=== PATIENT | female | born 1975 | race Hispanic/Latino ===

== ENCOUNTER 2024-10-07 15:20 | Emergency (ER) | payer SELFPAY ==
[2024-10-07 16:38] LABS: Absolute Basophils 0.1 K/uL (0-0.5); Absolute Eosinophils 0.1 K/uL (0-0.5); Absolute Lymphocytes (CBC) 2.1 K/uL (0.7-4.9); Absolute Monocytes 0.8 K/uL (0.1-1.3); Absolute Neutrophil 5.7 K/uL (1.8-8.0); Basophils % 0.7 % (0-1.3); Eosinophils % 1.2 % (0-4.4); Hematocrit 32.2 % (36.0-45.0); Hemoglobin 10.2 g/dL (12.0-15.0); Lymphocytes % 23.9 % (15.3-44.8); MCH 22.6 pg (27.0-35.0); MCHC 31.7 g/dL (32.0-36.0); MCV 71.2 fL (80-100); MPV 7.9 fL (7.6-11.3); Monocytes % 9.1 % (3.3-12.3); Neutrophils % 65.1 % (41.7-73.7); Nucleated Red Blood Cells % 0.1 % (0-0); Platelets 349 thou/uL (152-406); RBC Red Blood Cell Count 4.52 M/uL (3.86-4.86); Red Cell Distribution Width 20.2 % (12.1-15.2)
[2024-10-07 16:47] LABS: Anion Gap 8.3 mEq/L (5.0-15.0); Potassium 3.3 mEq/L (3.5-5.1)
[2024-10-07 16:55] LABS: Specific Gravity 1.009 (1.005-1.030); Sqamous Epithelial None Seen /HPF (None Seen); Urine Bacteria <20 /HPF (<20); Urine Bilirubin NEGATIVE (Negative); Urine Blood 2+ (Negative); Urine Clarity Clear (Clear); Urine Color Colorless (Yellow); Urine Crystals Unidentified Few /HPF (None Seen); Urine Culture Reflex Order NOT NEEDED; Urine Glucose NEGATIVE (Negative); Urine Ketones NEGATIVE (Negative); Urine Microscopic Reflex YN ORDER UMIC; Urine Mucus Slight /HPF (None Seen); Urine Nitrite NEGATIVE (Negative); Urine Protein NEGATIVE (Negative); Urine RBC <5 /HPF (None Seen); Urine Urobilinogen Normal (Normal); Urine WBC <5 /HPF (<5)
--- NOTE | 2024-10-07 17:17 | RAD REPORT ---
EXAMINATION: Pelvis Complete CLINICAL INDICATION: Vaginal bleeding TECHNIQUE: Real-time ultrasonography of the pelvis was performed transabdominally.. Color and spectra l Doppler evaluation of the ovaries was performed. COMPARISON: No prior exam. Findings: The uterus measures 10 x 5 x 6 cm Endometrial stripe measures 2.2 cm. A fibroid is not seen. Right ovary normal in size and echotexture. Left ovary normal in size and echotexture. Right and left adnexa unremarkable. No significant free fluid IMPRESSION: Endometrial stripe is thickened. This could be secondary to hyperplasia, polyp or neoplasm.
[2024-10-07 19:12] LABS: Blood Morphology Comment NOT SEEN (NOT SEEN); Platelet Estimate ADEQ; White Blood Cell Scan OK (OK)
[2024-10-07 19:18] LABS: Ferritin 2.5 ng/mL (8-252)
--- NOTE | 2024-10-07 19:27 | ER ---
Nurse's Notes [facility] Name: Rahul Alvarez Age: 49 yrs Sex: Female : 1975 Arrival Date: 10/07/2024 Time: 15:20 Bed 18 Private MD: Diagnosis: Abnormal uterine and vaginal bleeding, unspecified;Iron deficiency anemia, unspecified Presentation: 10/07 15:44 Chief complaint: Patient states: Weak, fatigued easily for 1 month. [place] dizzy today at 1 work she she decided to come get checked. Coronavirus screen: Client denies travel out of the [place] in the last 14 days. At this time, the client does not indicate any symptoms associated with coronavirus-19. Ebola Screen: Patient denies travel to an Ebola-affected area in the 21 days before illness onset. Initial Sepsis Screen: Does the patient meet any 2 criteria? No. Patient's initial sepsis screen is negative. Does the patient have a suspected source of infection? No. Patient's initial sepsis screen is negative. Risk Assessment: Do you want to hurt yourself or someone else? Patient reports no desire to harm self or others. Onset of symptoms was October 06, 2024. 15:44 Method Of Arrival: Ambulatory ll1 15:44 Acuity: CARMITA 3 ll1 ASSOCIATE ARTISTIC DIRECTOR: 16:10 5, Full Term 4, 1, unknown cp Historical: - Allergies: 15:44 No Known Allergies; ll1 - PMHx: 15:44 Asthma; ll1 - PSHx: 15:44 None; ll1 - Immunization history:: Adult Immunizations up to date. - Infectious Disease History:: Denies. - Social history:: Smoking status: Patient denies any tobacco usage or history of. Screenin:27 [facility] ED Fall Risk Assessment (Adult) History of falling in the last 3 months, kc6 including since admission No falls in past 3 months (0 pts) Confusion or Disorientation No (0 pts) Intoxicated or Sedated No (0 pts) Impaired Gait No (0 pts) Mobility Assist Device Used No (0 pt) Altered Elimination No (0 pt) Score/Fall Risk Level 0 - 2 = Low Risk Oriented to surroundings, Maintained a safe environment, Educated pt \T\ family on fall prevention, incl call for assistance when getting out of bed. Abuse screen: Denies threats or abuse. Denies injuries from another. Nutritional screening: No deficits noted. Tuberculosis screening: No symptoms or risk factors identified. Assessment: 16:27 General: Appears in no apparent distress. comfortable, well groomed, well developed, kc6 Behavior is calm, cooperative, appropriate for age. Pain: Complains of pain in pelvis Quality of pain is described as crampy, dull. Neuro: Level of Consciousness is awake, alert, obeys commands, Oriented to person, place, time, situation, Appropriate for age Reports dizziness. Cardiovascular: Capillary refill < 3 seconds. Respiratory: Airway is patent Trachea midline Respiratory effort is even, unlabored, Respiratory pattern is regular, symmetrical. GI: Abdomen is flat, non-distended, Reports lower abdominal pain, cramping, Patient currently denies diarrhea, nausea, vomiting. : Urine is blood tinged, Reports cramping, vaginal bleeding that is bright red, heavy flow. EENT: No signs and/or symptoms were reported regarding the EENT system. Derm: Skin is intact, is healthy with good turgor, Skin is dry, Skin is pale, Skin temperature is warm. Musculoskeletal: No signs and/or symptoms reported regarding the musculoskeletal system. Circulation, motion, and sensation intact. Range of motion: intact in all extremities. 17:30 Reassessment: Patient appears in no apparent distress at this time. No changes from kc6 previously documented assessment. Patient and/or family updated on plan of care and expected duration. Pain level reassessed. Patient is alert, oriented x 3, equal unlabored respirations, skin warm/dry/pink. 18:20 Reassessment: Patient appears in no apparent distress at this time. No changes from kc6 previously documented assessment. Patient and/or family updated on plan of care and expected duration. Pain level reassessed. Patient is alert, oriented x 3, equal unlabored respirations, skin warm/dry/pink. 19:15 Reassessment: ASSUMED CARE OF PT. PT SITTING IN BED. NO DISTRESS NOTED. VS STABLE. jj7 DAUGHTER AT BEDSIDE. Reassessment: Patient denies pain at this time. Patient states feeling better. General: Appears in no apparent distress. comfortable, Behavior is calm, cooperative, appropriate for age. Pain: Denies pain. : Reports vaginal bleeding that is bright red. Vital Signs: 15:44 BP 120 / 70; Pulse 68; Resp 16; Temp 98.2; Pulse Ox 100% ; Weight 64.41 kg; Height 5 ll1 ft. 3 in. ; 16:25 BP 130 / 68 RA Supine (auto/reg); Pulse 74; kc6 16:25 BP 134 / 70 RA Sitting (man/reg); Pulse 68; kc6 16:25 BP 139 / 69 RA Standing (man/reg); Pulse 67; kc6 19:15 BP 119 / 70; Pulse 62; Resp 20; Pulse Ox 100% ; jj7 15:44 Body Mass Index 25.15 (64.41 kg, 160.02 cm) ll1 ED Course: 15:24 Patient arrived in ED. im 15:26 Ankur Mosquera PA is PHCP. cp 15:26 Devon Montalvo MD is Attending Physician. cp 15:31 Arm band placed on. ll1 15:45 Triage completed. ll1 16:10 Qiana Lange, MARANDA is Primary Nurse. kc6 16:26 Patient has correct armband on for positive identification. Placed in gown. Bed in low kc6 position. Call light in reach. Side rails up X 1. Adult w/ patient. Pulse ox on. NIBP on. Door closed. Noise minimized. Lights dimmed. Warm blanket given. Pillow given. Verbal reassurance given. 16:26 Initial lab(s) drawn, by wi, sent to lab. Urine collected: clean catch specimen, blood kc6 tinged. Inserted saline lock: 20 gauge in left antecubital area, using aseptic technique. Blood collected. Flushed with 10 mL NS. Patient maintains SpO2 saturation greater than 95% on room air. 16:59 US Pelvis Complete In Process Unspecified. EDMS 19:07 Report given to MARANDA KEARNEY. kc6 19:15 Provided Education on: USE OF CALL TRINH. jj7 19:15 No provider procedures requiring assistance completed. jj7 19:24 Cathy Chew MD is Referral Physician. cp 19:50 IV discontinued, intact, bleeding controlled, No redness/swelling at site. Pressure jj7 dressing applied. Administered Medications: No medications were administered Medication: 19:15 VIS not applicable for this client. jj7 Outcome: 19:26 Discharge ordered by . cp 19:50 Discharged to home ambulatory, with family, jj7 19:50 Condition: improved 19:50 Discharge instructions given to patient, family, Instructed on discharge instructions, follow up and referral plans. medication usage, Demonstrated understanding of instructions, follow-up care, medications, Prescriptions given X 1, 19:50 Patient left the ED. jj7 Signatures: Dispatcher [employer] EDMS Ankur Mosquera PA PA cp Lewis, Lynsay, RN RN ll1 Qiana Lange RN RN kc6 Jolie Rudolph RN RN jj7 Yuli Choi
--- NOTE | 2024-10-07 19:27 | EDPHYS ---
Physician Documentation [facility] Name: Rahul Alvarez Age: 49 yrs Sex: Female : 1975 Arrival Date: 10/07/2024 Time: 15:20 Bed 18 Private MD: ED Physician Devon Montalvo HPI: 10/07 16:10 This 49 yrs old Female presents to ER via Ambulatory with complaints of General cp Weakness, Dizziness, Vaginal Bleeding. 16:10 The patient presents with vaginal bleeding that is moderate, with no clots. Onset: The cp symptoms/episode began/occurred 1 month(s) ago. 16:10 Associated signs and symptoms: Pertinent positives: general weakness, dizziness, cp Pertinent negatives: chest pain and/or abdominal pain. Severity of symptoms: in the emergency department the symptoms are unchanged, despite home interventions. The patient's method of control includes nothing. [employer]: 16:10 5, Full Term 4, 1, unknown cp Historical: - Allergies: 15:44 No Known Allergies; ll1 - PMHx: 15:44 Asthma; ll1 - PSHx: 15:44 None; ll1 - Immunization history:: Adult Immunizations up to date. - Infectious Disease History:: Denies. - Social history:: Smoking status: Patient denies any tobacco usage or history of. ROS: 16:15 Constitutional: Negative for body aches, chills, fever, poor PO intake, cp 16:15 Eyes: Negative for injury, pain, redness, and discharge, cp 16:15 Cardiovascular: Negative for chest pain, edema, palpitations, 16:15 Respiratory: Negative for cough, shortness of breath, wheezing, 16:15 Abdomen/GI: Negative for abdominal pain, vomiting, diarrhea, constipation, 16:15 : Positive for vaginal bleeding, Negative for urinary symptoms, 16:15 Neuro: Positive for dizziness, weakness, Negative for altered mental status, headache, syncope, near syncope, 16:15 All other systems are negative, Exam: 16:20 Constitutional: The patient appears in no acute distress, alert, awake, comfortable, cp non-toxic, well developed, well nourished, 16:20 Head/Face: Normocephalic, atraumatic. cp 16:20 Eyes: Periorbital structures: appear normal, Conjunctiva: normal, no exudate, no injection, Sclera: no appreciated abnormality, Lids and lashes: appear normal, bilaterally, 16:20 ENT: External ear(s): are unremarkable, Nose: is normal, Mouth: Lips: moist, Oral mucosa: moist, Posterior pharynx: Airway: no evidence of obstruction, patent, 16:20 Chest/axilla: Inspection: normal, 16:20 Cardiovascular: Rate: normal, Rhythm: regular, 16:20 Respiratory: the patient does not display signs of respiratory distress, Respirations: normal, no use of accessory muscles, no retractions, labored breathing, is not present, Breath sounds: are clear throughout, no decreased breath sounds, no stridor, no wheezing, 16:20 Abdomen/GI: Inspection: abdomen appears normal, Palpation: abdomen is soft and non-tender, in all quadrants, 16:20 Back: pain, is absent, 16:20 Neuro: Orientation: to person, place \T\ time. Mentation: is normal, Motor: moves all fours, strength is normal, Gait: is steady, at a normal pace, without difficulty, Vital Signs: 15:44 BP 120 / 70; Pulse 68; Resp 16; Temp 98.2; Pulse Ox 100% ; Weight 64.41 kg; Height 5 ll1 ft. 3 in. ; 16:25 BP 130 / 68 RA Supine (auto/reg); Pulse 74; kc6 16:25 BP 134 / 70 RA Sitting (man/reg); Pulse 68; kc6 16:25 BP 139 / 69 RA Standing (man/reg); Pulse 67; kc6 19:15 BP 119 / 70; Pulse 62; Resp 20; Pulse Ox 100% ; jj7 15:44 Body Mass Index 25.15 (64.41 kg, 160.02 cm) ll1 MDM: 15:51 Medical Screening Exam initiated cp 17:00 Differential diagnosis: menorrhea, Neoplasm ovarian cyst, anemia. cp 19:25 Data reviewed: vital signs, nurses notes, lab test result(s), radiologic studies, cp ultrasound, and as a result, I will discharge patient. 19:25 Counseling: I had a detailed discussion with the patient and/or guardian regarding the cp historical points, exam findings, and any diagnostic results supporting the discharge/admit diagnosis, lab results, radiology results, the need for outpatient follow up, for definitive care, an OB/Gyne specialist. 10/07 16:08 Order name: Basic Metabolic Panel; Complete Time: 17:33 cp 10/07 17:33 Interpretation: Normal except: K 3.3. cp 10/07 16:08 Order name: CBC with Diff; Complete Time: 19:24 cp 10/07 17:33 Interpretation: Normal except: HGB 10.2; HCT 32.2; MCV 71.2; MCH 22.6; MCHC 31.7; RDW cp 20.2. 10/07 16:08 Order name: Urinalysis w/ reflexes; Complete Time: 17:33 cp 10/07 17:33 Interpretation: Normal except: UBLD 2+. cp 10/07 16:08 Order name: Test, Serum; Complete Time: 17:33 cp 10/07 17:34 Interpretation: Reviewed. cp 10/07 16:08 Order name: Type And Screen; Complete Time: 19:24 cp 10/07 17:37 Order name: TIBC; Complete Time: 19:24 cp 10/07 19:24 Interpretation: Reviewed. cp 10/07 17:37 Order name: Ferritin; Complete Time: 19:24 cp 10/07 19:24 Interpretation: Reviewed. cp 10/07 19:12 Order name: CBC Smear Scan; Complete Time: 19:24 EDMS 10/07 19:16 Order name: ABO/RH no charge; Complete Time: 19:24 EDMS 10/07 16:08 Order name: US Pelvis Complete; Complete Time: 17:33 cp 10/07 17:33 Interpretation: Report reviewed. cp 10/07 16:08 Order name: Orthostatic Blood Pressure; Complete Time: 16:25 cp 10/07 16:08 Order name: IV Saline Lock; Complete Time: 16:25 cp 10/07 16:08 Order name: Labs collected and sent; Complete Time: 16:25 cp 10/07 16:08 Order name: NPO; Complete Time: 16:25 cp Administered Medications: No medications were administered Disposition: 10/08 09:04 Co-signature as Attending Physician, Devon Montalvo MD I reviewed the patient's care rn provided by the Advanced Practice Provider and agree with the diagnosis and treatment plan. Disposition Summary: 10/07/24 19:26 Discharge Ordered Notes: Location: Home cp Problem: new cp Symptoms: have improved cp Condition: Stable cp Diagnosis - Abnormal uterine and vaginal bleeding, unspecified cp - Iron deficiency anemia, unspecified cp Followup: cp - With: Cathy Chew MD - When: 5 - 6 days - Reason: vaginal bleeding Followup: cp - With: Private Physician - When: 1 week - Reason: anemia Discharge Instructions: - Discharge Summary Sheet cp - Abnormal Uterine Bleeding cp - Iron Deficiency Anemia, Adult cp - Anemia cp - Iron-Rich Diet cp - Dysfunctional Uterine Bleeding cp Forms: - Medication Reconciliation Form cp - Antibiotic Education cp - Prescription Opioid Use cp - Patient Portal Instructions cp - Leadership Thank You Letter cp - Work release form jj7 Prescriptions: - Ferrous Sulfate 325 mg (65 mg Iron) Oral tablet - take 1 tablet ORAL route every 12 hours; 60 tablet; Refills: 0, Product cp Selection Permitted Signatures: Dispatcher [employer] EDMS Devon Montalvo MD MD rn Ankur Mosquera PA PA cp Jean Marie Shrestha RN RN ll1 Qiana Lange RN RN kc6 Corrections: (The following items were deleted from the chart) 10/07 16:09 16:09 BASIC METABOLIC PANEL+C.LAB.BRZ ordered. EDMS EDMS 16:09 16:09 CBC+H.LAB.BRZ ordered. EDMS EDMS 16:09 16:09 Urinalysis+U.LAB.BRZ ordered. EDMS EDMS 16:09 16:09 TEST, SERUM+SC.LAB.BRZ ordered. EDMS EDMS 16:09 16:09 TYPE AND SCREEN+BB.LAB.BRZ ordered. EDMS EDMS
[2024-10-07 20:00] VITALS: TEMP 98.2; O2SAT 100
[2024-10-07 20:05] VITALS: BP 119/70
== END 2024-10-07 19:50 | disposition home or self-care (01) ==
LOC: ER 15:20
DX: D50.9 Iron deficiency anemia, unspecified (principal)
CPT/HCPCS: 36415; 76856; 80048; 81001; 82728; 83540; 84466; 84703; 85025; 86850; 86900; 86901; 99284

== ENCOUNTER 2025-04-08 23:56 | Emergency (ER) | payer OTHER, SELFPAY ==
--- OUTSIDE RECORDS SUMMARY | 2025-04-08 23:59 | XMS REPORT | Continuity of Care Document ---
Author Name Unknown Address [address] [place] [id number] [facility] [address] [facility] [address] [place] [address] Care Team Providers Care Printing Engineer Name Role Phone Unavailable Unavailable Unavailable Problems Condition Name Condition Details Condition Category Status Onset Date Resolution Date Last Treatment Date Treating Clinician Comments Source Stenosis of cervix Stenosis of Cervix Problem Active 6 00:00: 00 [facility] Iron deficiency anemia Iron Deficiency Anemia Problem Active 3- 00:00: 00 [facility] Menometror rhagia Menometror rhagia Problem Active 3- 00:00: 00 [facility] Dizziness Dizziness Problem Active 3 00:00: 00 [facility] Iron deficiency anemia due to blood loss Iron Deficiency Anemia Due to Blood Loss Problem Active 3- 00:00: 00 [facility] Social History Smoking Status Start Date Stop Date Source Never Smoker [facility] Medications Ordered Medication Name Filled Medication Name Start Date Stop Date Current Medication? Ordering Clinician Indication Dosage Frequency Signature (SIG) Comments Components Source amoxicillin 875 mg-potassiu m clavulanate 125 mg tablet Take 1 tablet every 12 hours by oral route for 14 days. amoxicillin 875 mg-potassiu m clavulanate 125 mg tablet Take 1 tablet every 12 hours by oral route for 14 days. No 1 Q12H amoxicilli n 875 mg-potassi um clavulanat e 125 mg tablet Take 1 tablet every 12 hours by oral route for 14 days. [facility] metronidazo le 500 mg tablet Take 1 tablet every 12 hours by oral route for 14 days. metronidazo le 500 mg tablet Take 1 tablet every 12 hours by oral route for 14 days. No 1 Q12H metronidaz ole 500 mg tablet Take 1 tablet every 12 hours by oral route for 14 days. [facility] Vital Signs Vital Name Observation Time Observation Value Comments S ource BP Systolic 2025-01-21 00:00:00 98 mm[Hg] [facility] Body Weight 2025-01-21 00:00:00 158 [lb_av] [facility] Height 2025-01-21 00:00:00 64 [in_i] [facility] BMI (Body Mass Index) 2025-01-21 00:00:00 27.1 kg/m2 [facility] BP Diastolic 2025-01-21 00:00:00 60 mm[Hg] [facility] Body Weight 2024-12-17 00:00:00 148.6 [lb_av] [facility] Height 2024-12-17 00:00:00 64 [in_i] [facility] BP Diastolic 2024-12-17 00:00:00 61 mm[Hg] [facility] BMI (Body Mass Index) 2024-12-17 00:00:00 25.5 kg/m2 [facility] BP Systolic 2024-12-17 00:00:00 111 mm[Hg] [facility] Body Weight 2024-11-25 00:00:00 148.6 [lb_av] [facility] Height 2024-11-25 00:00:00 64 [in_i] [facility] BP Diastolic 2024-11-25 00:00:00 58 mm[Hg] [facility] BP Systolic 2024-11-25 00:00:00 101 mm[Hg] [facility] BMI (Body Mass Index) 2024-11-25 00:00:00 25.5 kg/m2 [facility] BP Diastolic 2024-10-13 00:00:00 59 mm[Hg] [facility] Body Weight 2024-10-13 00:00:00 148.6 [lb_av] [facility] BP Systolic 2024-10-13 00:00:00 112 mm[Hg] [facility] BMI (Body Mass Index) 2024-10-13 00:00:00 25.5 kg/m2 [facility] Height 2024-10-13 00:00:00 64 [in_i] [facility] BP Systolic 2024-10-11 00:00:00 108 mm[Hg] [facility] BMI (Body Mass Index) 2024-10-11 00:00:00 25.5 kg/m2 [facility] BP Diastolic 2024-10-11 00:00:00 60 mm[Hg] [facility] Body Weight 2024-10-11 00:00:00 148.6 [lb_av] [facility] Height 2024-10-11 00:00:00 64 [in_i] [facility] Encounters Start Date/Time End Date/Time Encounter Type Admission Type Attending [facility] Care Department Encounter ID Source 2025-01-21 00:00:00 2025-01-21 00:00:00 SELENE Frausto: [address], [place] [address] , Ph. [facility] - GC_GCBZW_Wy bhavana Cowdrey* [id number] [facility] 2024-12-17 00:00:00 2024-12-17 00:00:00 Cathy Chew MD: [address], [place] [address] , Ph. [facility] GC_GCBZW_Vianey bateman Andrew* [id number] [facility] 2024-11-25 00:00:00 2024-11-25 00:00:00 SELENE Frausto: [address], [place] [address] , Ph. [facility] GC_GCBZW_Vianey bateman Andrew* [id number] [facility] 2024-10-22 00:00:00 2024-10-22 00:00:00 SELENE Frausto: [address], [place] [address] , Ph. [facility] GC_GCBZW_Wy bhavana Cowdrey* [id number] [facility] 2024-10-21 00:00:00 2024-10-21 00:00:00 SELENE Frausto: [address], [place] [address] , Ph. [facility] GC_GCBZW_Vianey bateman Andrew* [id number] [facility] 2024-10-13 00:00:00 2024-10-13 00:00:00 Cathy Chew MD: [address], [place] [address] , Ph. [facility] GC_GCBZW_[facility]* [id number] [facility] 2024-10-11 00:00:00 2024-10-11 00:00:00 DEON Yoo: [address], [place] [address] , Ph. [facility] - GC_GCBZW_Wy bhavana Andrew* [id number] [facility] Results Test Description Test Time Test Comments Results Result Co mments Source [facility] Pathology biopsy [id number] 00:00:00Clinical InformationPathologistA SourceA Gross DescriptionA DiagnosisA Comment[facility] Medicalpregnancy test, [id number] 14:38:56* Test Item Value Reference Range Interpretation Comme nts HCG (test code = HCG) negative [facility] [Mass/volume] in Serum or [id number] 00:00:00* Test Item Value Reference Range Interpretation Comme nts ferritin (test code = ferritin) 6 NG/mL 15-150 L [facility] Differential panel - [id number] 00:00:00* Test Item Value Reference Range Interpretation Comme nts WBC (test code = WBC) 7.1 10 3.7-12.0 RBC (test code = RBC) 4.37 10 3.60-5.50 HGB (test code = HGB) 9.8 g/dL 11.5-15.6 L HCT (test code = HCT) 33.0 % 34.5-46.5 L MCV (test code = MCV) 75.6 um 80.0-102.0 L MCH (test code = MCH) 22.5 pg 25.0-34.1 L MCHC (test code = MCHC) 29.8 g/dL 29.0-35.0 RDW (test code = RDW) 21.3 % 10.9-16.9 H plt (test code = plt) 330 10 136-392 MPV (test code = MPV) 9.1 um 7.4-11.1 gran % (test code = gran %) 74.5 % 36.0-78.0 lymph % (test code = lymph %) 17.4 % 12.0-48.0 mono % (test code = mono %) 6.1 % 0.0-13.0 eos % (test code = eos %) 1 % 0-8 baso % (test code = baso %) 1 % 0-2 gran # (test code = gran #) 5.3 10 1.2-6.8 lymph # (test code = lymph #) 1.2 10 0.7-3.2 mono # (test code = mono #) 0.4 10 0.1-0.8 eos # (test code = eos #) 0.1 10 0.0-0.4 baso # (test code = baso #) 0.1 10 0.0-0.2 [facility]oll[facility] [Units/volume] in Serum or [id number] 00:00:00* Test Item Value Reference Range Interpretation Comme nts FSH (test code = FSH) 13.4 mIU/mL [facility] and TSH panel - Serum or [id number] 00:00:00* Test Item Value Reference Range Interpretation Comme nts TSH (test code = TSH) 2.980 uIU/mL 0.500-4.530 free T4 (test code = free T4) 0.76 NG/dL 0.80-1.73 L [facility] and Iron binding capacity panel - Serum or [id number] 00:00:00* Test Item Value Reference Range Interpretation Comme nts iron saturation (test code = iron saturation) 7 % 15-55 L iron (test code = iron) 30 ug/dL 37-145 L UIBC (test code = UIBC) 393 ug/dL 112-347 H TIBC (test code = TIBC) 423.0 [facility]
[2025-04-09] MEDS ORDERED: ALBUTEROL 2.5 MG/3 ML NEB SOL ONE
[2025-04-09] MEDS ORDERED: IPRATROPIUM BROM 0.5MG/2.5ML ONE
[2025-04-09] MEDS ORDERED: NA CHLORIDE 0.9% 1,000 ML ONE (00:10)
[2025-04-09] MEDS ORDERED: ONDANSETRON 4 MG/2 ML VIAL ONE (00:10)
[2025-04-09] MEDS ORDERED: Magnesium Sulfate 2gm IVPB 2 G/50 ML BAG IV ONE (00:10)
[2025-04-09] MEDS ORDERED: METHYLPREDNISOLONE 125 MG INJ ONE (00:10)
[2025-04-09 00:16] LABS: Absolute Lymphocytes (CBC) 2.5 K/uL (0.7-4.9); Hematocrit 44.7 % (36.0-45.0); Hemoglobin 15.0 g/dL (12.0-15.0); MCH 29.4 pg (27.0-35.0); MCHC 33.6 g/dL (32.0-36.0); MCV 87.6 fL (80-100); MPV 8.3 fL (7.6-11.3); Nucleated RBC Absolute Count 0.0 (0-0); Nucleated Red Blood Cells % 0.0 % (0-0); RBC Red Blood Cell Count 5.10 M/uL (3.86-4.86); White Blood Count 6.90 thou/uL (4.3-10.9)
[2025-04-09] MEDS ORDERED: GUAIFENESIN/DM 5 ML UCUP ONE (00:22)
[2025-04-09 00:40] LABS: ALT/SGPT 41.0 U/L (13-56); AST/SGOT 27.0 U/L (15-37); Albumin 4.0 g/dL (3.4-5.0); Albumin/Globulin Ratio 1.0 (1.1-1.8); Alkaline Phosphatase 60.0 U/L (45-117); Anion Gap 10.3 mEq/L (5.0-15.0); BUN Blood Urea Nitrogen 12.0 mg/dL (7-18); Globulin 4.2 g/dL (2.3-3.5); Glucose Level 106.0 mg/dL (74-106); Potassium 3.3 mEq/L (3.5-5.1)
[2025-04-09 00:52] LABS: Influenza A Ag Negative; Influenza B Ag Negative; SARS-CoV-2 Antigen Rapid Res Negative (Negative)
--- NOTE | 2025-04-09 01:51 | EDPHYS ---
Physician Documentation [facility] Name: Rahul Alvarez Age: 49 yrs Sex: Female : 1975 Arrival Date: 04/08/2025 Time: 23:56 Bed 20 Private MD: ED Physician Jeffrey Clement HPI: 04/09 00:03 This 49 yrs old Female presents to ER via Unassigned with complaints of Asthma sp4 Exacerbation. 04/10 00:20 Patient presents with acute dyspnea and wheezing and cough indicative of her asthma sp4 attack. 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 - Infectious Disease History:: Denies. - Social history:: Smoking status: Patient denies any tobacco usage or history of. - Family history:: not pertinent. ROS: 04/10 00:20 Constitutional: Negative for fever, chills, and weight loss, positive for dyspnea, sp4 cough, wheezing All other systems are negative, Exam: 00:24 Constitutional: This is a well developed, well nourished patient who is awake, alert, sp4 and in no acute distress. Head/Face: Normocephalic, atraumatic. Eyes: Pupils equal round and reactive to light, extra-ocular motions intact. Lids and lashes normal. Conjunctiva and sclera are not injected. Cornea within normal limits. Periorbital areas with no swelling, redness, or edema. ENT: Nares patent. No nasal discharge, no septal abnormalities noted. Tympanic membranes are normal and external auditory canals are clear. Oropharynx with no redness, swelling, or masses, exudates, or evidence of obstruction, uvula midline. Mucous membranes moist. Neck: Trachea midline, no thyromegaly or masses palpated, and no cervical lymphadenopathy. Supple, full range of motion without nuchal rigidity, or vertebral point tenderness. Chest/axilla: Normal chest wall appearance and motion. Nontender with no deformity. No lesions are appreciated. Cardiovascular: Regular rate and rhythm with a normal S1 and S2. No gallops, murmurs, or rubs. No pulse deficits. Respiratory: Lungs have equal breath sounds bilaterally, diffuse mild to moderate expiratory wheezes in all lung anderson, dyspnea tachypnea, otherwise protecting the airway Abdomen/GI: Soft, with normal bowel sounds. No distension or tympany. No guarding or rebound. No evidence of tenderness throughout. Back: No spinal tenderness. No costovertebral tenderness. Skin: Warm, dry with normal turgor. Normal color with no rashes, no lesions, and no evidence of cellulitis. MS/ Extremity: Pulses equal, no cyanosis. Neurovascular intact. Full, normal range of motion. Neuro: Awake and alert, GCS 15, oriented to person, place, time, and situation. Cranial nerves II-XII grossly intact. Motor strength 5/5 in all extremities. Sensory grossly intact. Psych: Awake, alert, with orientation to person, place and time. Behavior, mood, and affect are within normal limits Vital Signs: 04/08 23:58 BP 146 / 102; Pulse 60; Resp 23 S; Temp 97.6; Pulse Ox 99% on R/A; Weight 63.5 kg; ha1 Height 5 ft. 5 in. ; 04/09 01:43 BP 121 / 71; Pulse 80; Resp 17; Temp 97.6; Pulse Ox 100% on R/A; Pain 0/10; bm8 04/08 23:58 Body Mass Index 23.30 (63.50 kg, 165.1 cm) ha1 04/09 01:43 Pain Scale: Adult bm8 Avis Coma Score: 01:43 Eye Response: spontaneous(4). Motor Response: obeys commands(6). Verbal Response: bm8 oriented(5). Total: 15. 04/10 00:24 Eye Response: spontaneous(4). Motor Response: obeys commands(6). Verbal Response: sp4 oriented(5). Total: 15. MDM: 04/09 00:05 Medical Screening Exam initiated sp4 04/10 00:24 Differential diagnosis: acute asthma, exercise-induced asthma, reactive airway, sp4 anaphylaxis, foreign body. Data reviewed: vital signs, nurses notes, lab test result(s). Consideration of Admission/Observation Escalation of care including admission/observation considered. ED course: Repeat exam is clear, no wheezing on auscultation, patient stable for discharge home with medications listed below . 04/09 00:04 Order name: CBC with Diff; Complete Time: 01:41 sp4 04/09 00:04 Order name: CMP; Complete Time: 01:41 sp4 04/09 00:05 Order name: COVID-19 Ag + Flu A+B Ag; Complete Time: : sp4 04/09 00:04 Order name: IV Saline Lock; Complete Time: 00:06 sp4 04/09 00:04 Order name: Labs collected and sent; Complete Time: 00:06 sp4 Administered Medications: 04/09 00:30 Drug: MethylPrednisoLONE IVP 125 mg IVP once Route: IVP; Site: right antecubital; zm 01:48 Follow up: Response: No adverse reaction bm8 00:30 Drug: DuoNeb Nebulize (2.5 mg - 0.5 mg) 3 ml Nebulizer once Route: Nebulizer; zm 01:47 Follow up: Response: No adverse reaction bm8 00:30 Drug: Magnesium Sulfate IVPB 2 grams IVPB once over 2 hrs Route: IVPB; Infused Over: 2 zm hrs; Site: right antecubital; 01:47 Follow up: Response: No adverse reaction; IV Status: Completed infusion bm8 00:30 Drug: Dextromethorphan-Guaifenesin PO Liquid 10 mg-100 mg/5 mL 10 ml PO once Route: PO; zm 01:47 Follow up: Response: No adverse reaction bm8 00:31 Drug: Ondansetron IVP 4 mg IVP once; over 2 minutes Route: IVP; Site: right antecubital;zm 01:48 Follow up: Response: No adverse reaction bm8 00:31 Drug: NS 0.9% IV 1000 ml IV at 1 bolus Per protocol; to be given as a bolus over 60 zm minutes Route: IV; Rate: 1 bolus; Site: right antecubital; 01:48 Follow up: Response: No adverse reaction; IV Status: Completed infusion bm8 01:48 Not Given (Physician Discretion): DuoNeb Nebulize (2.5 mg - 0.5 mg) 3 ml Nebulizer once bm8 Disposition: 04/10 00:25 Chart complete. sp4 Disposition Summary: 04/09/25 01:50 Discharge Ordered Notes: Location: Home sp4 Problem: new sp4 Symptoms: have improved sp4 Condition: Stable sp4 Diagnosis - Acute asthma exacerbation, sp4 - Mild intermittent asthma with (acute) exacerbation sp4 Followup: sp4 - With: Richar Suresh MD - When: 7 - 10 days - Reason: Recheck today's complaints Discharge Instructions: - Discharge Summary Sheet sp4 - Asthma Action Plan, Adult sp4 Forms: - Work release form sp4 - Patient Portal Instructions sp4 Prescriptions: - Nebulizer with Adult Mask - 0 Dispense one Nebulizer and One Mask , Use with Albuterol As directed; ; sp4 Refills: 0, Product Selection Permitted - Ventolin HFA 90 mcg/actuation Inhalation HFA Aerosol Inhaler - inhale 2 puff INHALATION route every 4 hours Dispense with SPACER , use PRN for sp4 wheezing; 1 unit; Refills: 0, Product Selection Permitted - dextromethorphan-guaifenesin 20-400 mg Oral tablet - take 1 tablet ORAL route every 4 hours as needed for cough; 60 tablet; Refills: sp4 0, Product Selection Permitted - Albuterol Sulfate 2.5 mg /3 mL (0.083 %) Inhalation Solution for Nebulization - inhale 1 unit NEBULIZATION route every 4 hours As needed Dispense 100 vials, sp4 Use Q 4 hours PRN nebulized; 100 unit; Refills: 0, Product Selection Permitted - Prednisone 20 mg Oral Tablet - take 2 tablets ORAL route once daily for 5 days; 10 tablet; Refills: 0, Product sp4 Selection Permitted Signatures: Dispatcher [employer] EDSoniya Dela Cruz, RN RN zm Rossana Sullivan RN RN ha1 Jeffrey Clement MD MD sp4 Favio Painter RN bm8 Corrections: (The following items were deleted from the chart) 04/09 00:04 00:04 CBC+H.LAB.BRZ ordered. EDMS EDMS 00:04 00:04 COMPREHENSIVE METABOLIC PANEL+C.LAB.BRZ ordered. EDMS EDMS
--- NOTE | 2025-04-09 01:51 | ER ---
Nurse's Notes [facility] Name: Rahul Alvarez Age: 49 yrs Sex: Female : 1975 Arrival Date: 04/08/2025 Time: 23:56 Bed 20 Private MD: Diagnosis: Acute asthma exacerbation,;Mild intermittent asthma with (acute) exacerbation Presentation: 04/08 23:58 Chief complaint: Patient states: SHORTNESS OF BREATH ASTHMA EXACERBATION. OUT OF RESCUE ha1 INHALER. 23:58 Coronavirus screen: Client denies travel out of the [place] in the last 14 days. Ebola ha1 Screen: No symptoms or risks identified at this time. Initial Sepsis Screen: Does the patient meet any 2 criteria? No. Patient's initial sepsis screen is negative. Does the patient have a suspected source of infection? No. Patient's initial sepsis screen is negative. Risk Assessment: Do you want to hurt yourself or someone else? Patient reports no desire to harm self or others. Onset of symptoms was April 09, 2025. 23:58 Method Of Arrival: Ambulatory ha1 23:58 Acuity: CARMITA 3 ha1 Triage Assessment: 04/09 00:23 General: Appears uncomfortable, Behavior is anxious. Pain: Denies pain. Neuro: Level of ha1 Consciousness is awake, alert, Oriented to person, place, time, situation. Cardiovascular: Reports shortness of breath. Respiratory: Reports shortness of breath at rest on exertion Airway is patent Respiratory effort is unlabored, Respiratory pattern is regular, symmetrical, the patient has moderate shortness of breath. GI: No signs and/or symptoms were reported involving the gastrointestinal system. : No signs and/or symptoms were reported regarding the genitourinary system. Derm: Skin is pink, warm \T\ dry. BUSHWALKING GUIDE: 00:42 unknown zm Historical: - Allergies: 00:23 No Known Allergies; ha1 - PMHx: 00:23 Asthma; ha1 - Immunization history:: Adult Immunizations up to date. - Infectious Disease History:: Denies. - Social history:: Smoking status: Patient denies any tobacco usage or history of. - Family history:: not pertinent. Screenin:41 [facility] ED Fall Risk Assessment (Adult) History of falling in the last 3 months, zm including since admission No falls in past 3 months (0 pts) Confusion or Disorientation No (0 pts) Intoxicated or Sedated No (0 pts) Impaired Gait No (0 pts) Mobility Assist Device Used No (0 pt) Altered Elimination No (0 pt) Score/Fall Risk Level 0 - 2 = Low Risk Oriented to surroundings, Maintained a safe environment, Educated pt \T\ family on fall prevention, incl call for assistance when getting out of bed, Assessed \T\ reinforced patient's understanding of fall precautions, Hourly rounding (assess needs \T\ fall precautionary measures) done, Used ambulatory aids as needed (educated on \T\ assisted with), Used gait belt as appropriate. Abuse screen: Denies threats or abuse. Denies injuries from another. Nutritional screening: No deficits noted. Tuberculosis screening: No symptoms or risk factors identified. Assessment: 00:00 General: Appears distressed, uncomfortable, Behavior is cooperative, anxious, restless. zm Pain: Denies pain. Neuro: Level of Consciousness is awake, alert, obeys commands, Oriented to person, place, time, situation. Cardiovascular: Patient's skin is warm and dry. Respiratory: Reports shortness of breath air hunger Airway is patent Respiratory effort is even, labored, Respiratory pattern is symmetrical, hyperventilation air hungry Breath sounds are clear bilaterally. in right upper lobe, left upper lobe, left lower lobe and right lower lobe. 01:43 Reassessment: Patient appears in no apparent distress at this time. Patient and/or bm8 family updated on plan of care and expected duration. Pain level reassessed. Patient is alert, oriented x 3, equal unlabored respirations, skin warm/dry/pink. Patient denies pain at this time. Patient states feeling better. Patient states symptoms have improved. General: Appears Behavior is cooperative, anxious. Neuro: Level of Consciousness is awake, alert, obeys commands, Oriented to person, place, time, situation, Appropriate for age. Respiratory: Reports air hunger Airway is patent Respiratory effort is even, unlabored, Breath sounds are clear bilaterally. the patient reports symptoms have resolved. GI: No deficits noted. No signs and/or symptoms were reported involving the gastrointestinal system. : No deficits noted. No signs and/or symptoms were reported regarding the genitourinary system. EENT: Reports nasal congestion nasal discharge that is watery. Derm: No deficits noted. No signs and/or symptoms reported regarding the dermatologic system. Musculoskeletal: No deficits noted. No signs and/or symptoms reported regarding the musculoskeletal system. Vital Signs: 04/08 23:58 BP 146 / 102; Pulse 60; Resp 23 S; Temp 97.6; Pulse Ox 99% on R/A; Weight 63.5 kg; ha1 Height 5 ft. 5 in. ; 04/09 01:43 BP 121 / 71; Pulse 80; Resp 17; Temp 97.6; Pulse Ox 100% on R/A; Pain 0/10; bm8 04/08 23:58 Body Mass Index 23.30 (63.50 kg, 165.1 cm) ha1 04/09 01:43 Pain Scale: Adult bm8 Avis Coma Score: 01:43 Eye Response: spontaneous(4). Motor Response: obeys commands(6). Verbal Response: bm8 oriented(5). Total: 15. 04/10 00:24 Eye Response: spontaneous(4). Motor Response: obeys commands(6). Verbal Response: sp4 oriented(5). Total: 15. ED Course: 04/08 23:57 Patient arrived in ED. im 23:58 Soniya Chaves, RN is Primary Nurse. 04/09 00:03 Jeffrey Clement MD is Attending Physician. sp4 00:10 Initial lab(s) drawn, by me, sent to lab. Inserted saline lock: 20 gauge in right zm antecubital area, using aseptic technique. Blood collected. Flushed with 10 mL NS. 00:23 Triage completed. ha1 00:31 CMP Sent. 00:31 CBC with Diff Sent. 00:31 COVID-19 Ag + Flu A+B Ag Sent. zm 00:41 Patient has correct armband on for positive identification. Bed in low position. Call light in reach. Side rails up X 1. Adult w/ patient. Provided Education on: call light use. Client placed on continuous cardiac and pulse oximetry monitoring. NIBP monitoring applied. campus monitor on. Pulse ox on. NIBP on. Warm blanket given. Verbal reassurance given. Head of bed elevated. 00:43 Arm band placed on right wrist. zm 01:43 No provider procedures requiring assistance completed. IV discontinued, intact, bm8 bleeding controlled, No redness/swelling at site. Pressure dressing applied. 01:49 Richar Suresh MD is Referral Physician. sp4 Administered Medications: 00:30 Drug: MethylPrednisoLONE IVP 125 mg IVP once Route: IVP; Site: right antecubital; zm 01:48 Follow up: Response: No adverse reaction bm8 00:30 Drug: DuoNeb Nebulize (2.5 mg - 0.5 mg) 3 ml Nebulizer once Route: Nebulizer; zm 01:47 Follow up: Response: No adverse reaction bm8 00:30 Drug: Magnesium Sulfate IVPB 2 grams IVPB once over 2 hrs Route: IVPB; Infused Over: 2 zm hrs; Site: right antecubital; 01:47 Follow up: Response: No adverse reaction; IV Status: Completed infusion bm8 00:30 Drug: Dextromethorphan-Guaifenesin PO Liquid 10 mg-100 mg/5 mL 10 ml PO once Route: PO; zm 01:47 Follow up: Response: No adverse reaction bm8 00:31 Drug: Ondansetron IVP 4 mg IVP once; over 2 minutes Route: IVP; Site: right antecubital;zm 01:48 Follow up: Response: No adverse reaction bm8 00:31 Drug: NS 0.9% IV 1000 ml IV at 1 bolus Per protocol; to be given as a bolus over 60 zm minutes Route: IV; Rate: 1 bolus; Site: right antecubital; 01:48 Follow up: Response: No adverse reaction; IV Status: Completed infusion bm8 01:48 Not Given (Physician Discretion): DuoNeb Nebulize (2.5 mg - 0.5 mg) 3 ml Nebulizer once bm8 Medication: 00:42 VIS not applicable for this client. Outcome: 01:50 Discharge ordered by . chelsea 02:04 Discharged to home ambulatory, with family, 02:04 Condition: stable 02:04 Discharge instructions given to patient, family, Instructed on discharge instructions, follow up and referral plans. no drinking with medication, medication usage, safety practices, Demonstrated understanding of instructions, follow-up care, medications, Prescriptions given X 5 02:05 Patient left the ED. zm Signatures: Soniya Chaves RN RN Rossana Sullivan RN RN ha1 Jeffrey Clement MD MD sp4 Choi, Yuli im Painter, Favio, RN RN bm8
[2025-04-09 03:45] VITALS: TEMP 97.6
[2025-04-09 03:46] VITALS: BP 121/71; O2SAT 100
== END 2025-04-09 02:05 | disposition home or self-care (01) ==
LOC: ER 23:56
DX: J45.21 Mild intermittent asthma with (acute) exacerbation (principal); Z11.52 Encounter for screening for COVID-19
CPT/HCPCS: 96365; 85025; 36415; 80053; 96375; 99285; 87428; J3475; J7613; J7644; J2919; J2405; J7030

== ENCOUNTER 2025-05-09 12:30 | Emergency (ER) | payer OTHER ==
[2025-05-09] MEDS ORDERED: IPRATROPIUM BROM 0.5MG/2.5ML ONE (12:44)
[2025-05-09] MEDS ORDERED: LEVALBUTEROL 1.25 MG/3 ML NEB ONE (12:45)
[2025-05-09] MEDS ORDERED: METHYLPREDNISOLONE 125 MG INJ ONE (12:45)
[2025-05-09 13:12] LABS: Absolute Lymphocytes (CBC) 2.1 K/uL (0.7-4.9); Hematocrit 40.1 % (36.0-45.0); Hemoglobin 13.4 g/dL (12.0-15.0); MCH 30.4 pg (27.0-35.0); MCHC 33.5 g/dL (32.0-36.0); MCV 90.7 fL (80-100); MPV 8.2 fL (7.6-11.3); Nucleated RBC Absolute Count 0.0 (0-0); Nucleated Red Blood Cells % 0.0 % (0-0); RBC Red Blood Cell Count 4.43 M/uL (3.86-4.86); White Blood Count 7.70 thou/uL (4.3-10.9)
--- NOTE | 2025-05-09 13:33 | RAD REPORT ---
EXAM: Chest Single View HISTORY: 49 years Female CHEST PAIN COMPARISON: No prior exams FINDINGS: LUNGS/PLEURA: The lungs are clear. No pleural effusions or pneumothorax. No pulmonary edema. CARDIAC/MEDIASTINUM: The cardiac silhouette is within normal limits. UPPER ABDOMEN: No significant abnormality. BONES: No acute abnormality. LINES/TUBES/OTHER: N/A IMPRESSION: No evidence of acute cardiopulmonary disease.
[2025-05-09 13:47] LABS: D-Dimer 0.754 FEUug/mL (0-0.500); PT Prothrombin Time 12.4 SECONDS (10-13.0); Protime INR 1.1
[2025-05-09 14:10] LABS: Anion Gap 11.4 mEq/L (5.0-15.0); BUN Blood Urea Nitrogen 11 mg/dL (7-18); Glucose Level 117 mg/dL (74-106); NT PRO-BNP 52 pg/mL (<125); Potassium 3.4 mEq/L (3.5-5.1)
[2025-05-09 14:12] LABS: Troponin High Sensitivity < 3.0 pg/mL (<58.9)
--- NOTE | 2025-05-09 15:34 | RAD REPORT ---
EXAMINATION: CTA CHEST PE CLINICAL INDICATION: Female, 49 years old. DYSPNEA TECHNIQUE: This examination was performed according to an angiographic protocol with 3D post-processi ng. This involves 3D reconstructions, MIPs, volume rendered images and/or shaded surface rendering. One or more of the following dose reduction techniques were used: Automated exposure control, adjustm ent of the mA and/or kV according to patient size, and/or iterative reconstruction. Unless otherwise specified, incidental findings do not require dedicated imaging follow-up. [id number]. COMPARISON: No priors. FINDINGS: LOWER NECK: Visualized thyroid gland and soft tissues are normal. MEDIASTINUM AND LYMPH NODES: No mediastinal mass or fluid collection. Normal size mediastinal, hilar, and axillary lymph nodes. THORACIC AORTA: No thoracic aortic aneurysm. PULMONARY ARTERIES: Caliber is within normal limits. No pulmonary emboli identified to the level of t he segmental pulmonary arteries. The subsegmental pulmonary arteries cannot be adequately assessed due to motion/suboptimal contrast opacification. HEART: Normal heart size. No coronary calcifications.No significant pericardial effusion. LUNGS AND AIRWAYS: No evidence of airspace or interstitial process. Motion artifact limits evaluation for pulmonary nodule detection. PLEURA: No pleural effusions. No pneumothorax. OSSEOUS STRUCTURES AND CHEST WALL: No fracture or suspicious osseous lesions. UPPER ABDOMEN: No acute abnormalities. Benign appearing low density liver lesions. IMPRESSION: Negative for pulmonary embolism to the level of the segmental pulmonary arteries. The subsegmental ve ssels cannot be adequate assessed. No other acute process identified in the chest.
--- NOTE | 2025-05-09 15:52 | ER ---
Nurse's Notes [facility] Name: Rahul Alvarez Age: 49 yrs Sex: Female : 1975 Arrival Date: 05/09/2025 Time: 12:30 Bed 12 Private MD: Diagnosis: Mild persistent asthma with (acute) exacerbation Presentation: 05/09 12:37 Chief complaint: Patient states: SOB that started about 10 minutes ago. Hx: asthma. me1 Coronavirus screen: Vaccine status: Patient reports receiving the 2nd dose of the covid vaccine. Ebola Screen: No symptoms or risks identified at this time. Initial Sepsis Screen: Does the patient meet any 2 criteria? No. Patient's initial sepsis screen is negative. Does the patient have a suspected source of infection? No. Patient's initial sepsis screen is negative. Risk Assessment: Do you want to hurt yourself or someone else? Patient reports no desire to harm self or others. Onset of symptoms was May 09, 2025 at 12:20. 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 - Infectious Disease History:: Denies. - Social history:: Smoking status: Patient denies any tobacco usage or history of. - Family history:: not pertinent. - Hospitalizations: : No recent hospitalization is reported. Screenin:28 [facility] ED Fall Risk Assessment (Adult) History of falling in the last 3 months, jb4 including since admission No falls in past 3 months (0 pts) Confusion or Disorientation No (0 pts) Intoxicated or Sedated No (0 pts) Impaired Gait No (0 pts) Mobility Assist Device Used No (0 pt) Altered Elimination No (0 pt) Score/Fall Risk Level 0 - 2 = Low Risk Oriented to surroundings, Maintained a safe environment. Abuse screen: Denies threats or abuse. Nutritional screening: No deficits noted. Tuberculosis screening: No symptoms or risk factors identified. Assessment: 16:28 Reassessment: Patient appears in no apparent distress at this time. Patient and/or jb4 family updated on plan of care and expected duration. Pain level reassessed. Patient is alert, oriented x 3, equal unlabored respirations, skin warm/dry/pink. Vital Signs: 12:37 BP 109 / 79; Pulse 79; Resp 22; Temp 98.3; Pulse Ox 100% ; Weight 65.77 kg; Height 5 me1 ft. 3 in. ; Pain 0/10; 12:37 Body Mass Index 25.69 (65.77 kg, 160.02 cm) me1 12:37 Pain Scale: Adult mo1 ED Course: 12:33 Patient arrived in ED. cj3 12:36 Devon Montalvo MD is Attending Physician. rn 12:40 Triage completed. me1 12:40 Arm band placed on Patient placed in an exam room. me1 13:12 EKG done, by orthotics technician. reviewed by Devon Montalvo MD. ts3 13:13 Initial lab(s) drawn, by mo, sent to lab. Inserted saline lock: 20 gauge in left hb antecubital area, using aseptic technique. Blood collected. Flushed with 10 mL NS. 13:21 XRAY Chest (1 view) In Process Unspecified. EDMS 15:07 CT Chest For PE Angio In Process Unspecified. EDMS 16:28 Patient has correct armband on for positive identification. Bed in low position. Call jb4 light in reach. Side rails up X 1. Provided Education on: discharge instructions.. 16:28 No provider procedures requiring assistance completed. IV discontinued, intact, jb4 bleeding controlled, No redness/swelling at site. Pressure dressing applied. Administered Medications: 13:11 Drug: MethylPrednisoLONE IVP 125 mg IVP once Route: IVP; Site: left antecubital; hb 13:11 Drug: Levalbuterol Inhalation 1.25 mg Inhalation once Route: Inhalation; hb 13:11 Drug: Ipratropium Inhalation Aerosol 0.5 mg Inhalation once Route: Inhalation; hb 13:11 Drug: Levalbuterol Inhalation 1.25 mg Inhalation once Route: Inhalation; hb Medication: 16:28 VIS not applicable for this client. jb4 Outcome: 15:52 Discharge ordered by MD. rn 16:28 Discharged to home ambulatory, jb4 16:28 Condition: stable 16:28 Discharge instructions given to patient, Instructed on discharge instructions, follow up and referral plans. medication usage, Demonstrated understanding of instructions, follow-up care, medications, Prescriptions given X 2, 16:29 Patient left the ED. jb4 Signatures: Dispatcher [employer] EDDevon Xie MD MD rn Baxter, Heather RN RN Patel Angel RN RN jb4 Meri Bales RN RN me1 Giovanna Rudolph 3 Jennifer Johnson 3
--- NOTE | 2025-05-09 15:53 | EDPHYS ---
Physician Documentation [facility] Name: Rahul Alvarez Age: 49 yrs Sex: Female : 1975 Arrival Date: 05/09/2025 Time: 12:30 Bed 12 Private MD: ED Physician Devon Montalvo HPI: 05/09 15:46 This 49 yrs old Female presents to ER via Ambulatory with complaints of rn Breathing Difficulty. 15:46 Patient reports shortness of breath that started when she was eating. Has history of rn asthma. Patient reports feeling anxious and cannot breathe. No fever or chills. No recent illness. No trauma. No hemoptysis. No history of DVT or PE. Uses albuterol but has not really been helping.. 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 - Infectious Disease History:: Denies. - Social history:: Smoking status: Patient denies any tobacco usage or history of. - Family history:: not pertinent. - Hospitalizations: : No recent hospitalization is reported. ROS: 15:46 Constitutional: Negative for fever, chills, and weight loss, Cardiovascular: Negative rn for chest pain, palpitations, and edema, Respiratory: Positive for shortness of breath Abdomen/GI: Negative for abdominal pain, nausea, vomiting, diarrhea, and constipation, MS/Extremity: Negative for injury and deformity, Skin: Negative for injury, rash, and discoloration, Neuro: Negative for headache, weakness, numbness, tingling, and seizure, Exam: 13:56 ECG was reviewed by the Attending Physician. rn 15:46 Constitutional: This is a well developed, well nourished patient who is awake, alert, rn appears anxious and tachypneic Cardiovascular: Regular rate and rhythm . No pulse deficits. Respiratory: Moderate tachypnea, faint wheezing bilaterally MS/ Extremity: Pulses equal, no cyanosis. Neuro: Awake and alert, GCS 15 Vital Signs: 12:37 BP 109 / 79; Pulse 79; Resp 22; Temp 98.3; Pulse Ox 100% ; Weight 65.77 kg; Height 5 me1 ft. 3 in. ; Pain 0/10; 12:37 Body Mass Index 25.69 (65.77 kg, 160.02 cm) me1 12:37 Pain Scale: Adult me1 MDM: 12:36 Medical Screening Exam initiated rn 15:46 Differential diagnosis: Anemia Anxiety Reaction asthma, pneumonia, Pneumothorax rn pulmonary edema, Pulmonary Embolism. Data reviewed: vital signs, nurses notes, lab test result(s), EKG, radiologic studies, CT scan, plain films, and as a result, I will discharge patient. Independent interpretation of the following test(s) in the Emergency Department EKG: See my EKG interpretation above X-Ray: My interpretation is Chest x-ray images negative for pneumonia or pneumothorax per my interpretation. CT Scan: My interpretation is CT chest for PE negative for pneumothorax or pulmonary edema per my interpretation. hospital monitor: rate is 79 beats/min, Rhythm is normal sinus rhythm, regular, with no ectopy, Interpretation: normal rate, normal rhythm. Care significantly affected by the following chronic conditions: asthma. Counseling: I had a detailed discussion with the patient and/or guardian regarding the historical points, exam findings, and any diagnostic results supporting the discharge/admit diagnosis, lab results, radiology results, the need for outpatient follow up, to return to the emergency department if symptoms worsen or persist or if there are any questions or concerns that arise at home. Response to treatment: the patient's symptoms have markedly improved after treatment, the patient's condition has returned to base line, the patient is now symptom free, and as a result, I will discharge patient. Special discussion: I discussed with the patient/guardian in detail that at this point there is no indication for admission to the hospital. It is understood, however, that if the symptoms persist or worsen the patient needs to return immediately for re-evaluation. Based on the history and exam findings, there is no indication for further emergent testing or inpatient evaluation. I discussed with the patient/guardian the need to see the primary care provider for further evaluation of the symptoms. I discussed with the patient/guardian the need to see the photography coordinator for further evaluation of the symptoms. ED course: Patient feels much better, will discharge home with steroids and refill of inhaler. Likely asthma with component of anxiety. I have personally reviewed all of the results, including but not limited to blood tests and imaging deemed necessary to safely discharge this patient at this time. All results given to and printed out for patient. I personally went over all the results with the patient and answered all questions. Patient will follow-up with PCP and or specialist as discussed. Return precautions given and understood.. 05/09 12:39 Order name: Basic Metabolic Panel; Complete Time: 15:40 rn 05/09 12:39 Order name: CBC with Diff; Complete Time: 13:53 rn 05/09 12:39 Order name: NT PRO-BNP; Complete Time: 15:40 rn 05/09 12:39 Order name: Troponin HS; Complete Time: 15:40 rn 05/09 12:40 Order name: D-Dimer; Complete Time: 13:53 rn 05/09 13:11 Order name: Protime (+INR); Complete Time: 13:53 EDMS 05/09 12:39 Order name: XRAY Chest (1 view); Complete Time: 13:53 rn 05/09 13:53 Order name: CT Chest For PE Angio; Complete Time: 15:40 rn 05/09 12:39 Order name: Cardiac monitoring; Complete Time: 13:12 rn 05/09 12:39 Order name: EKG - Nurse/Tech; Complete Time: 13:12 rn 05/09 12:39 Order name: IV Saline Lock; Complete Time: 13:12 rn 05/09 12:39 Order name: Labs collected and sent; Complete Time: 13:12 rn 05/09 12:39 Order name: O2 Per Protocol; Complete Time: 13:12 rn 05/09 12:39 Order name: O2 Sat Monitoring; Complete Time: 13:12 rn EC:56 Rate is 72 beats/min. Rhythm is regular. QRS [place] is Normal. MN interval is normal. QRS rn interval is normal. QT interval is normal. No Q waves. T waves are Normal. No ST changes noted. Clinical impression: Normal ECG. Interpreted by me. Reviewed by me. Administered Medications: 13:11 Drug: MethylPrednisoLONE IVP 125 mg IVP once Route: IVP; Site: left antecubital; hb 13:11 Drug: Levalbuterol Inhalation 1.25 mg Inhalation once Route: Inhalation; hb 13:11 Drug: Ipratropium Inhalation Aerosol 0.5 mg Inhalation once Route: Inhalation; hb 13:11 Drug: Levalbuterol Inhalation 1.25 mg Inhalation once Route: Inhalation; hb Disposition Summary: 05/09/25 15:52 Discharge Ordered Notes: Location: Home rn Problem: an acute exacerbation rn Symptoms: have improved rn Condition: Stable rn Diagnosis - Mild persistent asthma with (acute) exacerbation rn Followup: rn - With: Private Physician - When: As needed - Reason: Recheck today's complaints, Re-evaluation by your physician Discharge Instructions: - Discharge Summary Sheet rn - Asthma, Adult rn Forms: - Medication Reconciliation Form rn - Antibiotic ornament stitcher - Prescription Opioid Use rn - Patient Portal Instructions rn - Leadership Thank You Letter rn Prescriptions: - albuterol sulfate 90 mcg/actuation Inhalation Aerosol Powder, Breath Activated - administer 2 inhalation INHALATION route every 4 to 6 hours As needed as needed rn for shortness of breath or wheezing; 1 unit; Refills: 0, Product Selection Permitted - Prednisone 20 mg Oral Tablet - take 3 tablets ORAL route once daily for 5 days; 15 tablet; Refills: 0, Product rn Selection Permitted Signatures: Dispatcher [employer] EDMS Devon Montalvo MD MD rn Baxter, Heather, RN RN Meri Bales RN RN me1 Corrections: (The following items were deleted from the chart) 12:40 12:40 Chest Single View+RAD.RAD.BRZ ordered. EDMS EDMS 12:40 12:40 D-DIMER+COAG.LAB.BRZ ordered. EDMS EDMS 13:10 12:40 PROTIME (+INR)+COAG.LAB.BRZ ordered. EDMS EDMS 13:53 13:53 Chest For PE Angio+CT.RAD.BRZ ordered. EDMS EDMS
[2025-05-09 20:17] VITALS: BP 109/79; TEMP 98.3; O2SAT 100
== END 2025-05-09 16:29 | disposition home or self-care (01) ==
LOC: ER 12:30
DX: J45.31 Mild persistent asthma with (acute) exacerbation (principal)
CPT/HCPCS: 93005; 85025; 80048; 36415; 85610; 85379; 84484; 83880; 71275; 71045; 96374; 99285; Q9967; J7614; J7644; J2919